=== PATIENT | male | born 1955 | race Hispanic/Latino ===

== ENCOUNTER 2017-11-18 15:57 | Emergency (ER) | payer BC ==
[~2017-11-18 15:57] MED LIST: AEC81 PO; ATOR40TA71 PO; LEVO25TA54 PO; METO25TA6 PO; PANT40TA PO; TICA90TA PO
[2017-11-18 16:41] LABS: BASOPHILS % (AUTO) 0.5 % (0.0-5.0); EOSINOPHILS % (AUTO) 3.8 % (0.0-8.0); HEMATOCRIT 42.3 % (42-54); LYMPHOCYTES % (AUTO) 21.3 % (21.0-51.0); MEAN CORPUSCULAR HEMOGLOBIN 31.8 pg (27.0-33.0); MEAN CORPUSCULAR HGB CONC 34.2 g/dL (32.0-36.0); MEAN CORPUSCULAR VOLUME 93.2 fL (79-99); MONOCYTES % (AUTO) 10.9 % (3.0-13.0); NEUTROPHILS % (AUTO) 63.5 % (40.0-77.0); PLATELET COUNT (AUTO) 158 K/uL (130-400); RED BLOOD CELL COUNT(AUTO) 4.54 MIL/uL (4.50-6.20); RED CELL DISTRIBUTION WIDTH 12.9 % (11.0-15.5); WHITE BLOOD COUNT (AUTO) 6.2 K/uL (4.8-10.8)
[2017-11-18 16:51] LABS: CREATININE 1.2 mg/dL (0.5-1.5); POTASSIUM 4.5 mmol/L (3.5-5.1)
[2017-11-18 16:54] LABS: INR 0.97 (0.85-1.15); PARTIAL THROMBOPLASTIN TIME 26.4 SEC (26.3-35.5); PROTHROMBIN TIME 10.2 SEC (9.6-11.6)
[2017-11-18 16:55] LABS: ALBUMIN 3.6 g/dL (3.5-5.0); BILIRUBIN,TOTAL 0.4 mg/dL (0.2-1.0); TOTAL PROTEIN, SERUM 7.3 g/dL (6.0-8.3)
[2017-11-18] MEDS ORDERED: SUCRALFATE 1 GM TABLET ONE (18:40)
[2017-11-19] MEDS ORDERED: FERR-82 PO (12:46)
[2017-11-19] MEDS ORDERED: CLOP75TA32 PO (12:46)
== END 2017-11-18 21:14 | disposition home or self-care (01) ==
LOC: EDH 15:57
DX: K29.71 Gastritis, unspecified, with bleeding (principal); I10 Essential (primary) hypertension; E78.5 Hyperlipidemia, unspecified; I25.10 Atherosclerotic heart disease of native coronary artery without angina pectoris; Z79.899 Other long term (current) drug therapy
CPT/HCPCS: 36415; 80053; 82150; 82270; 83690; 85025; 85610; 85730

== ENCOUNTER 2017-11-19 05:33 | Observation (INO) | payer BC ==
[~2017-11-19] VITALS: Ht 167.6 cm; Wt 75.8 kg
[2017-11-19 06:06] LABS: BASOPHILS % (AUTO) 0.3 % (0.0-5.0); HEMATOCRIT 42.9 % (42-54); LYMPHOCYTES % (AUTO) 16.1 % (21.0-51.0); MEAN CORPUSCULAR HEMOGLOBIN 31.9 pg (27.0-33.0); MEAN CORPUSCULAR HGB CONC 33.8 g/dL (32.0-36.0); MEAN CORPUSCULAR VOLUME 94.5 fL (79-99); MONOCYTES % (AUTO) 9.1 % (3.0-13.0); NEUTROPHILS % (AUTO) 72.5 % (40.0-77.0); PLATELET COUNT (AUTO) 163 K/uL (130-400); RED BLOOD CELL COUNT(AUTO) 4.54 MIL/uL (4.50-6.20); WHITE BLOOD COUNT (AUTO) 10.3 K/uL (4.8-10.8)
[2017-11-19] MEDS ORDERED: FAMOTIDINE/PF 20 MG/2 ML VIAL IV ONE (06:28)
[2017-11-19 06:31] LABS: CREATININE 1.2 mg/dL (0.5-1.5); POTASSIUM 4.3 mmol/L (3.5-5.1)
[2017-11-19 06:32] LABS: INR 0.97 (0.85-1.15); PARTIAL THROMBOPLASTIN TIME 22.6 SEC (26.3-35.5); PROTHROMBIN TIME 10.2 SEC (9.6-11.6)
[2017-11-19 06:38] LABS: ALBUMIN 3.6 g/dL (3.5-5.0); BILIRUBIN,TOTAL 0.5 mg/dL (0.2-1.0); TOTAL PROTEIN, SERUM 7.2 g/dL (6.0-8.3)
[2017-11-19 10:35] VITALS: BP 129/78
[2017-11-19] MEDS ORDERED: SODIUM CHLORIDE 0.9% 10 ML VIAL IVP SCH (11:15)
[2017-11-19] MEDS ORDERED: CLONIDINE HCL 0.1 MG TABLET PO PRN (11:15)
[2017-11-19] MEDS ORDERED: ACETAMINOPHEN 325 MG TAB PO PRN ×2 (11:15)
[2017-11-19] MEDS ORDERED: LACTULOSE 20 GM/30 ML UDCUP PO PRN (11:15)
[2017-11-19] MEDS: SODIUM CHLORIDE 0.9% 1000ML 1,000 ML IV SCH (12:37)
[2017-11-19] MEDS ORDERED: FERR-82 PO (12:46)
[2017-11-19] MEDS ORDERED: CLOP75TA32 PO (12:46)
[2017-11-19 16:00] VITALS: BP 135/78
[2017-11-19 19:38] VITALS: BP 125/74
[2017-11-19] MEDS: FAMOTIDINE/PF 20 MG/2 ML VIAL IV SCH (20:06)
[2017-11-19 23:27] VITALS: BP 116/71
[2017-11-20] MEDS: SODIUM CHLORIDE 0.9% 1000ML 1,000 ML IV SCH (00:29)
[2017-11-20 04:48] VITALS: BP 136/72
[2017-11-20 05:18] LABS: HEMATOCRIT 36.2 % (42-54)
[2017-11-20 05:25] LABS: CREATININE 1.2 mg/dL (0.5-1.5); POTASSIUM 4.1 mmol/L (3.5-5.1)
[2017-11-20 07:54] VITALS: BP 126/73
[2017-11-20] MEDS: FAMOTIDINE/PF 20 MG/2 ML VIAL IV SCH (08:30)
[2017-11-20] MEDS: PANTOPRAZOLE 40 MG/VIAL IVP SCH ×2 (10:30→22:29)
[2017-11-20 11:43] VITALS: BP 127/75
[2017-11-20 15:32] VITALS: BP 144/79
[2017-11-20 20:14] VITALS: BP 132/83
[2017-11-20] MEDS ORDERED: ATORVASTATIN CALCIUM 40 MG TABLET PO SCH (21:00)
[2017-11-20] MEDS: METOPROLOL TARTRATE 25 MG TAB PO SCH (22:29)
[2017-11-21] VITALS (25 sets, daily range): BP systolic 91–139; BP diastolic 54–86
[2017-11-21 05:43] LABS: HEMATOCRIT 36.5 % (42-54)
[2017-11-21] MEDS ORDERED: LEVOTHYROXINE 25 MCG TABLET PO SCH (06:30)
[2017-11-21] MEDS ORDERED: FERROUS SULFATE 325 MG TABLET.DR PO SCH (09:00)
[2017-11-21] MEDS: METOPROLOL TARTRATE 25 MG TAB PO SCH (09:10)
[2017-11-21] MEDS: PANTOPRAZOLE 40 MG/VIAL IVP SCH (09:11)
[2017-11-21] MEDS ORDERED: PROPOFOL 10 MG/ML 20ML VIAL IV ONE (10:22)
[2017-11-21] MEDS ORDERED: PANT40TA PO (10:46)
[2017-11-21] MEDS ORDERED: SUCR1TAB28 PO (10:46)
[2017-11-21] MEDS ORDERED: SUCRALFATE 1 GM/10 ML PO SCH (16:30)
[2017-11-22] MEDS ORDERED: PANTOPRAZOLE SODIUM 40 MG TABLET.DR PO SCH (09:00)
== END 2017-11-21 17:45 | disposition home or self-care (01) ==
LOC: EDH 05:33 → EDHIP 08:02 → 4DH 10:47 → 4CH 20:10
PROVIDERS: ADMIT Family Medicine; ATTEND Family Medicine
DX: K92.1 Melena (principal); K22.6 Gastro-esophageal laceration-hemorrhage syndrome; D62 Acute posthemorrhagic anemia; E78.5 Hyperlipidemia, unspecified; I10 Essential (primary) hypertension; E03.9 Hypothyroidism, unspecified; I25.10 Atherosclerotic heart disease of native coronary artery without angina pectoris; Z87.11 Personal history of peptic ulcer disease; Z95.5 Presence of coronary angioplasty implant and graft; Z79.02 Long term (current) use of antithrombotics/antiplatelets
CPT/HCPCS: 36415 ×3; 43235; 80048; 80053; 82270; 85025; 85610; 85730; 86677; 86850; 86900; 86901; 92610; 96374; 96376; 99285; C9113 ×2; G0378 ×58; J2704; J3490 ×3; J7030 ×2

== ENCOUNTER → 2018-10-27 | Outpatient (CLI) | payer BC, SELFPAY ==
[~2018-10-27] MED LIST changes: -AEC81 PO; +CLOP75TA32 PO; +FERR-82 PO; +SUCR1TAB28 PO; -TICA90TA PO
== END | disposition home or self-care (01) ==
LOC: SHCH 11:12
PROVIDERS: ATTEND Internal Medicine Cardiovascular Disease
DX: R06.09 Other forms of dyspnea (principal); I25.10 Atherosclerotic heart disease of native coronary artery without angina pectoris
CPT/HCPCS: 93306

== ENCOUNTER 2021-12-11 04:12 | Emergency (ER) | payer MEDICARE, OTHER, SELFPAY ==
[~2021-12-11] VITALS: Ht 167.6 cm; Wt 79.4 kg
[2021-12-11 04:41] LABS: BASOPHILS % (AUTO) 0.4 % (0.0-5.0); EOSINOPHILS % (AUTO) 1.8 % (0.0-8.0); HEMATOCRIT 44.7 % (42-54); LYMPHOCYTES % (AUTO) 17.5 % (21.0-51.0); MEAN CORPUSCULAR HEMOGLOBIN 32.1 pg (27.0-33.0); MEAN CORPUSCULAR HGB CONC 33.6 g/dL (32.0-36.0); MEAN CORPUSCULAR VOLUME 95.7 fL (79-99); MONOCYTES % (AUTO) 8.2 % (3.0-13.0); NEUTROPHILS % (AUTO) 71.9 % (40.0-77.0); PLATELET COUNT (AUTO) 144 K/uL (130-400); RED BLOOD CELL COUNT(AUTO) 4.67 MIL/uL (4.50-6.20); RED CELL DISTRIBUTION WIDTH 12.8 % (11.0-15.5); WHITE BLOOD COUNT (AUTO) 9.2 K/uL (4.8-10.8)
[2021-12-11 04:48] LABS: APPEARANCE,URINE Clear (CLEAR); BILIRUBIN,URINE Negative (NEGATIVE); COLOR,URINE Yellow (YELLOW); GLUCOSE, URINE (UA) Negative (NEGATIVE); KETONES,URINE Trace mg/dL (NEGATIVE); LEUKOCYTE ESTERASE ,URINE Trace (NEGATIVE); NITRATE,URINE Negative (NEGATIVE); OCCULT BLOOD,URINE Negative (NEGATIVE); PROTEIN,URINE Trace mg/dL (NEGATIVE)
[2021-12-11] MEDS ORDERED: KETOROLAC 30MG VIAL (30MG/ML) ONE (04:59)
[2021-12-11 05:00] LABS: CREATININE 1.3 mg/dL (0.5-1.5)
[2021-12-11] MEDS ORDERED: KETOROLAC 30MG VIAL (30MG/ML) IV ONE (05:00)
[2021-12-11 05:04] LABS: BACTERIA,URINE None Seen /HPF (None Seen); MUCUS,URINE Moderate LPF (None Seen); RBC,URINE None Seen /HPF (0-1); SQUAMOUS EPITHELIAL CELL,UR Few /HPF (0-2); WBC,URINE 0-1 /HPF (0-1)
[2021-12-11 05:15] LABS: ALBUMIN 3.9 g/dL (3.5-5.0); TOTAL PROTEIN, SERUM 7.3 g/dL (6.0-8.3)
[2021-12-11 07:33] VITALS: BP 138/71
[2021-12-11] MEDS ORDERED: TAMS-1 PO (09:23)
[2021-12-11] MEDS ORDERED: IBUP-2070 PO (09:23)
== END 2021-12-11 09:37 | disposition home or self-care (01) ==
LOC: EDH 04:12
DX: R10.9 Unspecified abdominal pain (principal); R11.0 Nausea; I11.0 Hypertensive heart disease with heart failure; I25.10 Atherosclerotic heart disease of native coronary artery without angina pectoris; E11.9 Type 2 diabetes mellitus without complications; E78.00 Pure hypercholesterolemia, unspecified; Z95.0 Presence of cardiac pacemaker; Z79.899 Other long term (current) drug therapy
CPT/HCPCS: 36415; 74176; 80053; 81001; 83690; 85025; 96374; 99284; J1885

== ENCOUNTER 2021-12-20 03:18 | Emergency (ER) | payer MEDICARE ==
[~2021-12-20] VITALS: Ht 167.6 cm; Wt 79.4 kg
[~2021-12-20 03:18] MED LIST changes: +IBUP-2070 PO; +TAMS-1 PO
[2021-12-20 03:45] LABS: BASOPHILS % (AUTO) 0.6 % (0.0-5.0); EOSINOPHILS % (AUTO) 3.6 % (0.0-8.0); HEMATOCRIT 45.3 % (42-54); LYMPHOCYTES % (AUTO) 31.5 % (21.0-51.0); MEAN CORPUSCULAR HEMOGLOBIN 31.7 pg (27.0-33.0); MEAN CORPUSCULAR HGB CONC 33.6 g/dL (32.0-36.0); MEAN CORPUSCULAR VOLUME 94.6 fL (79-99); MONOCYTES % (AUTO) 10.8 % (3.0-13.0); NEUTROPHILS % (AUTO) 53.3 % (40.0-77.0); PLATELET COUNT (AUTO) 173 K/uL (130-400); RED BLOOD CELL COUNT(AUTO) 4.79 MIL/uL (4.50-6.20); RED CELL DISTRIBUTION WIDTH 12.3 % (11.0-15.5); WHITE BLOOD COUNT (AUTO) 6.3 K/uL (4.8-10.8)
[2021-12-20 03:55] LABS: CREATININE 1.4 mg/dL (0.5-1.5)
[2021-12-20 03:57] LABS: APPEARANCE,URINE Clear (CLEAR); BILIRUBIN,URINE Negative (NEGATIVE); COLOR,URINE Yellow (YELLOW); GLUCOSE, URINE (UA) Negative (NEGATIVE); KETONES,URINE Trace mg/dL (NEGATIVE); LEUKOCYTE ESTERASE ,URINE Trace (NEGATIVE); NITRATE,URINE Negative (NEGATIVE); OCCULT BLOOD,URINE Negative (NEGATIVE); PROTEIN,URINE Trace mg/dL (NEGATIVE)
[2021-12-20 03:59] LABS: ALBUMIN 4.1 g/dL (3.5-5.0); BILIRUBIN,TOTAL 1.2 mg/dL (0.2-1.0); TOTAL PROTEIN, SERUM 7.6 g/dL (6.0-8.3)
[2021-12-20 04:09] LABS: BACTERIA,URINE None Seen /HPF (None Seen); MUCUS,URINE Rare LPF (None Seen); RBC,URINE None Seen /HPF (0-1); SQUAMOUS EPITHELIAL CELL,UR Rare /HPF (0-2); WBC,URINE None Seen /HPF (0-1)
[2021-12-20] MEDS ORDERED: ONDANSETRON 4MG INJ ONE (05:06)
[2021-12-20] MEDS ORDERED: PANTOPRAZOLE 40 MG/VIAL ONE (05:06)
[2021-12-20] MEDS ORDERED: KETOROLAC 30MG VIAL (30MG/ML) ONE (05:06)
[2021-12-20] MEDS ORDERED: METOCLOPRAMIDE 10 MG/2 ML VIAL ONE (05:06)
[2021-12-20] MEDS ORDERED: FAMOTIDINE 20MG VIAL IV ONE ×2 (05:06→05:30)
[2021-12-20] MEDS ORDERED: KETOROLAC 30MG VIAL (30MG/ML) IV ONE (05:30)
[2021-12-20] MEDS ORDERED: METOCLOPRAMIDE 10 MG/2 ML VIAL IVP ONE (05:30)
[2021-12-20] MEDS ORDERED: ONDANSETRON 4MG INJ IVP ONE (05:30)
[2021-12-20] MEDS ORDERED: 0.9%NACL 1000ML 1,000 ML IV ONE (05:30)
[2021-12-20] MEDS ORDERED: PANTOPRAZOLE 40 MG/VIAL IVP ONE (05:30)
[2021-12-20] MEDS ORDERED: ONDA4TAB10 PO (05:53)
[2021-12-20] MEDS ORDERED: DICY20TA2 PO (05:53)
[2021-12-20] MEDS ORDERED: PANT40TA PO (05:53)
[2021-12-20] MEDS ORDERED: METO-296 PO (05:53)
[2021-12-20 06:01] VITALS: BP 116/67
== END 2021-12-20 06:23 | disposition home or self-care (01) ==
LOC: EDH 03:18
DX: E86.9 Volume depletion, unspecified (principal); R11.2 Nausea with vomiting, unspecified; R10.11 Right upper quadrant pain; I10 Essential (primary) hypertension; Z79.1 Long term (current) use of non-steroidal anti-inflammatories (NSAID); Z79.899 Other long term (current) drug therapy; Z95.5 Presence of coronary angioplasty implant and graft
CPT/HCPCS: 36415; 76705; 80053; 81001; 83690; 84484; 85025; 93005; 96374; 96375; 99285; C9113; J1885; J2405; J2765; J3490

== ENCOUNTER 2022-02-05 01:43 | Emergency (ER) | payer MEDICARE, OTHER ==
[~2022-02-05] VITALS: Ht 167.6 cm; Wt 750.2 kg
[~2022-02-05 01:43] MED LIST changes: +DICY20TA2 PO; +METO-296 PO; +ONDA4TAB10 PO
[2022-02-05 02:14] LABS: BASOPHILS % (AUTO) 0.5 % (0.0-5.0); HEMATOCRIT 41.6 % (42-54); LYMPHOCYTES % (AUTO) 21.6 % (21.0-51.0); MEAN CORPUSCULAR HEMOGLOBIN 30.9 pg (27.0-33.0); MEAN CORPUSCULAR HGB CONC 33.2 g/dL (32.0-36.0); MEAN CORPUSCULAR VOLUME 93.3 fL (79-99); NEUTROPHILS % (AUTO) 67.7 % (40.0-77.0); PLATELET COUNT (AUTO) 170 K/uL (130-400); RED BLOOD CELL COUNT(AUTO) 4.46 MIL/uL (4.50-6.20); RED CELL DISTRIBUTION WIDTH 12.9 % (11.0-15.5); WHITE BLOOD COUNT (AUTO) 8.9 K/uL (4.8-10.8)
[2022-02-05 02:16] LABS: APPEARANCE,URINE Clear (CLEAR); BILIRUBIN,URINE Negative (NEGATIVE); COLOR,URINE Yellow (YELLOW); GLUCOSE, URINE (UA) Negative (NEGATIVE); KETONES,URINE Negative (NEGATIVE); LEUKOCYTE ESTERASE ,URINE Negative (NEGATIVE); NITRATE,URINE Negative (NEGATIVE); OCCULT BLOOD,URINE Negative (NEGATIVE); PROTEIN,URINE Negative (NEGATIVE); UROBILINOGEN,URINE 0.2 mg/dL (0.2-1.0)
[2022-02-05 02:24] LABS: CREATININE 1.3 mg/dL (0.5-1.5); POTASSIUM 4.3 mmol/L (3.5-5.1)
[2022-02-05 02:29] LABS: ALBUMIN 3.8 g/dL (3.5-5.0); TOTAL PROTEIN, SERUM 7.1 g/dL (6.0-8.3)
[2022-02-05] MEDS ORDERED: SUCRALFATE 1 GM TABLET ONE (06:25)
[2022-02-05] MEDS ORDERED: PANTOPRAZOLE 40 MG/VIAL ONE (06:25)
[2022-02-05 06:30] VITALS: BP 151/77
[2022-02-05] MEDS ORDERED: SUCR1TAB28 PO (06:54)
== END 2022-02-05 07:06 | disposition home or self-care (01) ==
LOC: EDH 01:43
DX: R10.13 Epigastric pain (principal); R11.0 Nausea; E03.9 Hypothyroidism, unspecified; E78.00 Pure hypercholesterolemia, unspecified; I10 Essential (primary) hypertension; Z79.1 Long term (current) use of non-steroidal anti-inflammatories (NSAID); Z79.899 Other long term (current) drug therapy; Z95.5 Presence of coronary angioplasty implant and graft
CPT/HCPCS: 36415; 80053; 81003; 83690; 84484; 85025; 93005; C9113

== ENCOUNTER 2022-05-27 20:04 | Emergency (ER) | payer MEDICARE ==
[~2022-05-27] VITALS: Ht 167.6 cm; Wt 72.6 kg
[2022-05-27 20:56] LABS: BASOPHILS % (AUTO) 0.2 % (0.0-5.0); HEMATOCRIT 40.2 % (42-54); LYMPHOCYTES % (AUTO) 13.9 % (21.0-51.0); MEAN CORPUSCULAR HEMOGLOBIN 32.2 pg (27.0-33.0); MEAN CORPUSCULAR HGB CONC 34.8 g/dL (32.0-36.0); MEAN CORPUSCULAR VOLUME 92.4 fL (79-99); NEUTROPHILS % (AUTO) 77.8 % (40.0-77.0); PLATELET COUNT (AUTO) 137 K/uL (130-400); RED BLOOD CELL COUNT(AUTO) 4.35 MIL/uL (4.50-6.20); RED CELL DISTRIBUTION WIDTH 12.5 % (11.0-15.5); WHITE BLOOD COUNT (AUTO) 8.1 K/uL (4.8-10.8)
[2022-05-27 20:59] LABS: APPEARANCE,URINE CLEAR (CLEAR); BILIRUBIN,URINE NEGATIVE (NEGATIVE); COLOR,URINE YELLOW (YELLOW); GLUCOSE, URINE (UA) NEGATIVE (NEGATIVE); KETONES,URINE 40 mg/dL (NEGATIVE); LEUKOCYTE ESTERASE ,URINE NEGATIVE (NEGATIVE); NITRATE,URINE NEGATIVE (NEGATIVE); OCCULT BLOOD,URINE SMALL (NEGATIVE); PH,URINE 6.5 (5.0-8.0); PROTEIN,URINE NEGATIVE (NEGATIVE); UROBILINOGEN,URINE 0.2 mg/dL (0.2-1.0)
[2022-05-27 21:05] LABS: BACTERIA,URINE Rare /HPF (None Seen); CARBON DIOXIDE 26 mmol/L (21-32); CHLORIDE 102 mmol/L (101-111); CREATININE 1.9 mg/dL (0.5-1.5); GLOMERULAR FILTR. RATE CALC 38 mL/min (>60); GLUCOSE,RANDOM 108 mg/dL (70-105); POTASSIUM 3.7 mmol/L (3.5-5.1); SODIUM SERUM 138 mmol/L (136-145); SQUAMOUS EPITHELIAL CELL,UR Rare /HPF (0-2); UREA NITROGEN, BLOOD 27 mg/dL (7-18); WBC,URINE 0-1 /HPF (0-1)
[2022-05-27 21:09] LABS: ALANINE AMINOTRANSFERASE 23 U/L (12-78); ALBUMIN 4.2 g/dL (3.5-5.0); ASPARTATE AMINOTRANSFERASE 24 U/L (10-37); TOTAL PROTEIN, SERUM 7.3 g/dL (6.0-8.3)
[2022-05-27 21:18] LABS: CRP QUANTITATIVE < 2.00 mg/L (0.00-9.0)
[2022-05-27] MEDS ORDERED: TAMSULOSIN HCL 0.4 MG CAP.ER.24H PO SCH (21:30)
[2022-05-27] MEDS ORDERED: 0.9%NACL 1000ML 1,000 ML IV SCH (21:30)
[2022-05-27] MEDS ORDERED: KETOROLAC 30MG VIAL (30MG/ML) IVP ONE (21:30)
[2022-05-27] MEDS ORDERED: ONDANSETRON 4MG INJ IVP ONE (21:30)
[2022-05-27] MEDS ORDERED: LACT10PA5 PO (21:56)
[2022-05-27] MEDS ORDERED: KETO10 PO (21:56)
[2022-05-27] MEDS ORDERED: TAMS-1 PO (21:56)
[2022-05-27] MEDS ORDERED: ONDA4TAB10 PO (21:57)
[2022-05-27] MEDS ORDERED: MAGNESIUM CITRATE 296 ML SOLUTION PO ONE (22:00)
[2022-05-27] MEDS ORDERED: LACTULOSE 20 GM/30 ML UDCUP PO ONE (22:00)
[2022-05-27 22:18] VITALS: BP 145/77
== END 2022-05-27 22:19 | disposition home or self-care (01) ==
LOC: EDH 20:04
DX: N20.0 Calculus of kidney (principal); K80.20 Calculus of gallbladder without cholecystitis without obstruction; K59.01 Slow transit constipation; E86.0 Dehydration; E03.9 Hypothyroidism, unspecified; I10 Essential (primary) hypertension; E78.00 Pure hypercholesterolemia, unspecified; Z79.1 Long term (current) use of non-steroidal anti-inflammatories (NSAID); Z79.899 Other long term (current) drug therapy; Z95.5 Presence of coronary angioplasty implant and graft
CPT/HCPCS: 99284; 74176; 96374; 96375; 84484; 80053; 85025; 86140; 81001; 36415; J7030; J2405; J1885

== ENCOUNTER → 2023-01-28 | Outpatient (CLI) | payer OTHER ==
[~2023-01-28] MED LIST changes: +KETO10 PO; +LACT10PA5 PO; +REGADENOSON 0.4 MG/5 ML PF SYG IVP ONE
== END | disposition home or self-care (01) ==
LOC: SHCH 08:04
PROVIDERS: ATTEND Internal Medicine Cardiovascular Disease
DX: I25.10 Atherosclerotic heart disease of native coronary artery without angina pectoris (principal); R42 Dizziness and giddiness; R00.2 Palpitations; I25.2 Old myocardial infarction; I10 Essential (primary) hypertension; E78.5 Hyperlipidemia, unspecified; Z95.5 Presence of coronary angioplasty implant and graft; Z79.82 Long term (current) use of aspirin; Z79.02 Long term (current) use of antithrombotics/antiplatelets; Z79.899 Other long term (current) drug therapy
CPT/HCPCS: 78452; 96374; 93017; J2785; A9500 ×2